=== PATIENT | male | born 1985 | race Caucasian/White ===

== ENCOUNTER 2024-05-30 11:26 | Emergency (ER) | payer OTHER ==
[2024-05-30] MEDS ORDERED: Bupivacaine 0.5% 30 ML SDV INJECT PRN (12:35)
== END 2024-05-30 13:05 | disposition home or self-care (01) ==
LOC: VM.ED 11:26
DX: K02.9 Dental caries, unspecified (principal)
CPT/HCPCS: 64400; 99282-25; 99283